=== PATIENT | female | born 2000 | race Caucasian/White ===

== ENCOUNTER 2018-12-04 03:07 | Inpatient (IN) | payer MEDICAID, OTHER ==
[2018-12-04 03:07] VITALS: BMI 30.1
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
[2018-12-04 03:35] LABS: BASO # 0.01 K/mm3 (0.0-2.0); BASO % 0.1 % (0.0-3.0); EOS # 0.4 (0.0-0.7); EOS % 5.3 % (1.5-5.0); HEMOGLOBIN 9.7 g/dL (12.0-16.0); LYMPH # 2.7 (1.2-3.4); LYMPH % 37.8 % (22.0-35.0); MEAN CELL VOLUME 74.2 fl (80.0-105.0); MEAN CORPUSCULAR HEMOGLOBIN 22.6 pg (25.0-35.0); MEAN CORPUSCULAR HGB CONC 30.4 g/dl (31.0-37.0); MEAN PLATELET VOLUME 9.4 fl (7.0-11.0); MONO # 0.3 (0.1-0.6); MONO % 3.5 % (1.0-6.0); RBC 4.3 10^6/uL (3.5-6.1); RED CELL DISTRIBUTION WIDTH 15.4 % (11.5-14.5); WHITE BLOOD COUNT 7.2 10^3/uL (4.5-11.0)
[2018-12-04 03:46] LABS: ALT/SGPT 19 U/L (7-56); AST/SGOT 33 U/L (14-36); BLOOD UREA NITROGEN 12 mg/dL (7-21); GFR NON-AFRICAN AMERICAN > 60
[2018-12-04 03:56] VITALS: O2SAT 100
[2018-12-04 04:05] LABS: ACETAMINOPHEN < 10.0 ug/ml (10.0-20.0); SALICYLATE < 1 mg/dL (2.0-20.0)
[2018-12-04 04:24] LABS: PH,URINE 6.5 (4.7-8.0); URINE APPEARANCE CLEAR (CLEAR); URINE BILIRUBIN NEGATIVE (NEGATIVE); URINE BLOOD NEGATIVE (NEGATIVE); URINE COLOR YELLOW (YELLOW); URINE GLUCOSE (UA) NEGATIVE (NEGATIVE); URINE LEUKOCYTE ESTERASE NEGATIVE Leu/uL (NEGATIVE); URINE PROTEIN NEGATIVE mg/dL (<30 mg/dL); URINE UROBILINOGEN 0.2 E.U./dL (<1 E.U./dL)
[2018-12-04 04:31] LABS: HCG,QUALITATIVE URINE NEGATIVE (NEGATIVE)
[2018-12-04 04:36] LABS: BARBITURATES, UR NEGATIVE (NEGATIVE); BENZODIAZEPINES, UR NEGATIVE (NEGATIVE); OPIATES, UR NEGATIVE (NEGATIVE); PHENCYCLIDINE, UR NEGATIVE (NEGATIVE)
--- NOTE | 2018-12-04 05:42 | PCM.BM ---
<Sarina Hopson - Last Filed: 12/04/18 05:39> Treatment Plan Problems - Problems identified on initial assessmt SUICIDAL IDEATION Date Initiated: 12/04/18 Time Initiated: 05:30 Assessment reference: NA Status: Active Priority: 1 INEFFECTIVE COPING Date Initiated: 12/04/18 Time Initiated: 05:30 Assessment reference: NA Status: Active Priority: 2 MEDICAL NON ADHERENCE Date Initiated: 12/04/18 Time Initiated: 05:30 Assessment reference: NA Status: Active Priority: 3 Treatment assets and liabiliti Patient Assests: cooperative, educated, self-reliant, ADL independent, physically healthy, negotiates basic needs, cognitively intact Patient Liabilities: financial problems, relationship conflicts - Milieu Protocol Maintain good personal hygiene: every other day Encourage regular showers, every shift Remind patient to perform daily oral care, every shift Assist patient to perform ADL's Maintain personal safety: every shift Educate patient to report safety concerns to staff, every shift Monitor environment for contraband/sharps Medication safety: Monitor for expected outcome, potential side effects: every shift, Assess barriers to learning: every shift, Assess readiness for medication education: every shift Family Contact Family involvement: Family/SO is involved Family contact: Patient agrees to contact Discharge/Continuing Care - Education Needs Education Needs: Patient Medication, Patient Diagnosis/Disease Process, Patient Coping Skills, Patient Anger Management skills, Patient Placement options, Patient Activities of Daily Living, Patient Uses of Medical Equipment - Discharge Discharge Criteria: Tolerates medication w/o severe side effects, Free of Suicidal thoughts, Free of paranoid thoughts, Normal sleep pattern, Ability to care for self <Ritika Santos Y - Last Filed: 12/04/18 15:41> Family Contact Family involvement: Family/SO is involved Family contact: Patient agrees to contact <Concepcion Summers - Last Filed: 12/04/18 15:42> - Diagnosis (1) Alcohol abuse Status: Acute Interventions: 12/04/18 15:42 Monitoring withdrawal symptoms Medical detoxification Pharmacotherapy for alcohol/benzos/opioid dependence Maintaining sobriety Relapse prevention Possible rehabilitation Motivational interviewing 12-step programs: AA meetings (2) Depression Status: Acute Interventions: 12/04/18 15:43 Psychoeducation Psychopharmacology/adjustment of medications as needed/ monitoring possible side effects Evaluate pt on daily basis Compliance with medications and follow up appointments Suicide and homicide risk assessment and prevention Relapse prevention Reduction of symptoms Improve functional status Family involvement As outpatient: cognitive behavioral therapy <Sumaya Ibarra - Last Filed: 12/05/18 11:29>
[2018-12-04] MEDS ORDERED: Alum-Mag Hydrox-Simethicone Susp (30 mL) PO PRN (06:05)
[2018-12-04] MEDS ORDERED: Magnesium Hydroxide Susp 30 ml UD PO PRN (06:05)
[2018-12-04 09:19] LABS: HDL CHOLESTEROL 30 mg/dL (29-60)
[2018-12-04 09:30] LABS: LDL CHOLESTEROL 74 mg/dL (0-129)
[2018-12-04 09:31] LABS: FREE T4 0.39 ng/dL (0.78-2.19)
--- NOTE | 2018-12-04 10:22 | CARD ---
APPROVED REPORT Date of service: 12/04/2018 EKG Measurement Heart [id number] <Conclusion> Normal sinus rhythm with sinus arrhythmia Normal ECG
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
[2018-12-04] MEDS: Multivitamin With Minerals Tab PO SCH (17:24)
[2018-12-04 17:45] LABS: RAPID PLASMA REAGIN REACTIVE (NONREACTIVE)
[2018-12-05] MEDS: Multivitamin With Minerals Tab PO SCH (09:33)
--- NOTE | 2018-12-05 16:07 | PCM.PYCHPN ---
Psychiatric Progress Note - Psychiatric Progress Note Patient seen today, length of contact: 30 minutes Patient Chief Complaint: "I am very tires, I was not sleeping, I am not doing so well" Problems Identified/Issues Discussed: Risk/benefits and alternatives of medications discussed, suicide/ homicide prevention, past psychiatric h/o, current psychiatric symptoms, medical problems, risk/benefits and alternatives of medications, medications compliance, coping strategies, substance abuse h/o, relapse prevention, importance of follow up with psychiatrist and therapist, discharge plan. Medical Problems: Alcohol use disorder, besides that patient is relatively healthy Diagnostic Results: 12/04/18 03:25 12/04/18 08:43 Lab Results 12/04/18 08:43: Random Glucose 84, Triglycerides 174 H, Cholesterol 139, LDL Cholesterol Direct 74, HDL Cholesterol 30 12/04/18 08:40: RPR Titer 1:1, RPR Reactive H 12/04/18 08:39: Free T4 0.39 L, TSH 3rd Generation 38.10 H 12/04/18 03:59: Urine Opiates Screen Negative, Urine Methadone Screen Negative, Ur Barbiturates Screen Negative, Ur Phencyclidine Scrn Negative, Ur Amphetamines Screen Negative, U Benzodiazepines Scrn Negative, U Oth Cocaine Metabols Negative, U Cannabinoids Screen Negative 12/04/18 03:59: Urine Color Yellow, Urine Appearance Clear, Urine pH 6.5, Ur Specific [place] 1.025, Urine Protein Negative, Urine Glucose (UA) Negative, Urine Ketones Negative, Urine Blood Negative, Urine Nitrate Negative, Urine Bilirubin Negative, Urine Urobilinogen 0.2, Ur Leukocyte Esterase Negative, Urine HCG, Qual Negative 12/04/18 03:25: Alcohol, Quantitative < 10 12/04/18 03:25: Salicylates < 1 L, Acetaminophen < 10.0 L 12/04/18 03:25: Sodium 139, Potassium 3.6, Chloride 107, Carbon Dioxide 24, Anion Gap 11, BUN 12, Creatinine 0.7, Est GFR ( Amer) > 60, Est GFR (Non- Af Amer) > 60, Random Glucose 92, Calcium 9.0, Magnesium 1.8, Total Bilirubin 0.2, AST 33, ALT 19, Alkaline Phosphatase 77, Total Protein 7.9, Albumin 4.0, Globulin 3.9, Albumin/Globulin Ratio 1.0 L 12/04/18 03:25: WBC 7.2, RBC 4.30, Hgb 9.7 L, Hct 31.9 L, MCV 74.2 L, MCH 22.6 L , MCHC 30.4 L, RDW 15.4 H, Plt Count 460 H, MPV 9.4, Neut % (Auto) 53.3, Lymph % (Auto) 37.8 H, [place] % (Auto) 3.5, Eos % (Auto) 5.3 H, Baso % (Auto) 0.1, Lymph # (Auto) 2.7, [place] # (Auto) 0.3, Eos # (Auto) 0.4, Baso # (Auto) 0.01, Absolute Neuts (auto) 3.81 Vital Signs Temp Pulse Resp BP Pulse Ox 12/05/18 07:20 97.3 F L 60 18 83/38 L 12/04/18 05:44 20 12/04/18 05:10 62 18 127/63 100 12/04/18 03:20 97.4 F L 60 18 126/72 100 DSM 5 Symptoms Update: Shortly, patient is a 18 year old single [place]ian female with history of depression, anxiety, one previous admission to this facility in September 2018, was admitted to the psychiatric inpatient unit for evaluation and stabilization of depressive symptoms and possible suicidal ideation with plan to drown herself. Please see emergency room notes for more detailed information. Patient was seen and examined today in her room, poor personal hygiene, patient appears to be disheveled, good ADLs. Patient appears to be depressed, disengaged, flat affect, patient reported that she did not sleep last night, patient reported to feel hopeless and helpless. As per staff patient does not participate in unit activities, patient is self isolating, depressed, no agitation, no aggression. So far patient tolerates medications well, no side effects observed or reported, aims 0, no EPS. 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 Impression: DSM 5 Diagnosis: Rule out major depressive disorder rule out bipolar disorder Alcohol abuse Rule out adjustment disorder PTSD as per history Medication Change: No (Resumed yesterday) Medical Record Reviewed: Yes Consults ordered or reviewed: Patient is in good physical health, will consider to have medical consult patient if patient would have any medical complaints. Mental Status Examination - Cognitive Function Orientation: Person, Place, Situation, Time Memory: Intact Attention: Poor Concentration: Poor Association: Loose Fund of Knowledge: Poor - Mood Mood: Depressed, Anxious - Affect Affect: Constricted (And tearful), Flat - Formal Thought Process Formal Thought Process: No Impairment - Suicidal Ideation Suicidal Ideation: Yes Plan: Passive wish to be - Homicidal Ideation Homicidal Ideation: No Goal/Treatment Plan - Goal/Treatment Plan Need for Continued Stay: Remain at risks for inpatient hospitalization, Severe depression anxiety, Discharge may exacerbated symptoms, Severe functional impairment Progress Toward Problem(s) and Goals/Treatment Plan: Milieu/structure/supportive therapy SW consultation for discharge plan and social issues Med management Patient wants to resume all of her psychotropic medications Lexapro 20 mg daily for depression and anxiety Seroquel 50 mg at the nighttime for mood stabilization and psychotic symptoms Multivitamins, thiamine, folic acid Sonata as needed for insomnia Family involvement Follow up on labs Will monitor closely Pt was educated about risk/benefits and alternatives of medications, coping strategies (safety plan, suicide prevention), relapse prevention, importance of follow up with psychiatrist and therapist, stay away from drugs/alcohol/smoking Estimated Date of D/C: 12/11/18
[2018-12-06] MEDS: Multivitamin With Minerals Tab PO SCH (09:25)
--- NOTE | 2018-12-06 15:40 | PCM.PYCHPN ---
Psychiatric Progress Note - Psychiatric Progress Note Patient seen today, length of contact: 30 minutes Patient Chief Complaint: "I am doing a little bit better" Problems Identified/Issues Discussed: Risk/benefits and alternatives of medications discussed, suicide/ homicide prevention, past psychiatric h/o, current psychiatric symptoms, medical problems, risk/benefits and alternatives of medications, medications compliance, coping strategies, substance abuse h/o, relapse prevention, importance of follow up with psychiatrist and therapist, discharge plan. Medical Problems: Alcohol use disorder, besides that patient is relatively healthy Diagnostic Results: 12/04/18 03:25 12/04/18 08:43 Lab Results 12/04/18 08:43: Random Glucose 84, Triglycerides 174 H, Cholesterol 139, LDL Cholesterol Direct 74, HDL Cholesterol 30 12/04/18 08:40: RPR Titer 1:1, RPR Reactive H 12/04/18 08:39: Free T4 0.39 L, TSH 3rd Generation 38.10 H 12/04/18 03:59: Urine Opiates Screen Negative, Urine Methadone Screen Negative, Ur Barbiturates Screen Negative, Ur Phencyclidine Scrn Negative, Ur Amphetamines Screen Negative, U Benzodiazepines Scrn Negative, U Oth Cocaine Metabols Negative, U Cannabinoids Screen Negative 12/04/18 03:59: Urine Color Yellow, Urine Appearance Clear, Urine pH 6.5, Ur Specific [place] 1.025, Urine Protein Negative, Urine Glucose (UA) Negative, Urine Ketones Negative, Urine Blood Negative, Urine Nitrate Negative, Urine Bilirubin Negative, Urine Urobilinogen 0.2, Ur Leukocyte Esterase Negative, Urine HCG, Qual Negative 12/04/18 03:25: Alcohol, Quantitative < 10 12/04/18 03:25: Salicylates < 1 L, Acetaminophen < 10.0 L 12/04/18 03:25: Sodium 139, Potassium 3.6, Chloride 107, Carbon Dioxide 24, Anion Gap 11, BUN 12, Creatinine 0.7, Est GFR ( Amer) > 60, Est GFR (Non- Af Amer) > 60, Random Glucose 92, Calcium 9.0, Magnesium 1.8, Total Bilirubin 0.2, AST 33, ALT 19, Alkaline Phosphatase 77, Total Protein 7.9, Albumin 4.0, Globulin 3.9, Albumin/Globulin Ratio 1.0 L 12/04/18 03:25: WBC 7.2, RBC 4.30, Hgb 9.7 L, Hct 31.9 L, MCV 74.2 L, MCH 22.6 L , MCHC 30.4 L, RDW 15.4 H, Plt Count 460 H, MPV 9.4, Neut % (Auto) 53.3, Lymph % (Auto) 37.8 H, [place] % (Auto) 3.5, Eos % (Auto) 5.3 H, Baso % (Auto) 0.1, Lymph # (Auto) 2.7, [place] # (Auto) 0.3, Eos # (Auto) 0.4, Baso # (Auto) 0.01, Absolute Neuts (auto) 3.81 Vital Signs Temp Pulse Resp BP Pulse Ox 12/05/18 07:20 97.3 F L 60 18 83/38 L 12/04/18 05:44 20 12/04/18 05:10 62 18 127/63 100 12/04/18 03:20 97.4 F L 60 18 126/72 100 DSM 5 Symptoms Update: Shortly, patient is a 18 year old single Burmese female with history of depression, anxiety, one previous admission to this facility in September 2018, was admitted to the psychiatric inpatient unit for evaluation and stabilization of depressive symptoms and possible suicidal ideation with plan to drown herself. Please see emergency room notes for more detailed information. Patient was seen and examined today in her room, poor personal hygiene, patient appears to be disheveled, good ADLs. Patient appears to be depressed, but there is some improvements with patient presentation, patient smiled couple of times, patient reported that her sleep was better, patient reported that her nausea is improving. As per staff patient does not participate in unit activities, patient is self isolating, depressed, no agitation, no aggression. So far patient tolerates medications well, no side effects observed or reported, aims 0, no EPS. Impression: DSM 5 Diagnosis: Rule out major depressive disorder rule out bipolar disorder Alcohol abuse Rule out adjustment disorder PTSD as per history Medication Change: No (Patient does not want medications to be adjusted) Medical Record Reviewed: Yes Consults ordered or reviewed: Patient is in good physical health, will consider to have medical consult patient if patient would have any medical complaints. Mental Status Examination - Cognitive Function Orientation: Person, Place, Situation, Time Memory: Intact Attention: Poor (Some improvement) Concentration: Poor (Some improvement) Association: Loose Fund of Knowledge: Poor - Mood Mood: Depressed ("I feel little better"), Anxious - Affect Affect: Constricted (But more reactive and mood congruent) - Speech Speech: Appropriate - Formal Thought Process Formal Thought Process: No Impairment - Suicidal Ideation Suicidal Ideation: No - Homicidal Ideation Homicidal Ideation: No Goal/Treatment Plan - Goal/Treatment Plan Need for Continued Stay: Remain at risks for inpatient hospitalization, Severe depression anxiety, Discharge may exacerbated symptoms, Severe functional impairment Progress Toward Problem(s) and Goals/Treatment Plan: Milieu/structure/supportive therapy SW consultation for discharge plan and social issues Med management Patient wants to resume all of her psychotropic medications Lexapro 20 mg daily for depression and anxiety Seroquel 50 mg at the nighttime for mood stabilization and psychotic symptoms Multivitamins, thiamine, folic acid Sonata as needed for insomnia Family involvement Follow up on labs Will monitor closely Pt was educated about risk/benefits and alternatives of medications, coping st rategies (safety plan, suicide prevention), relapse prevention, importance of follow up with psychiatrist and therapist, stay away from drugs/alcohol/smoking Estimated Date of D/C: 12/11/18
[2018-12-07] MEDS: Multivitamin With Minerals Tab PO SCH (08:48)
--- NOTE | 2018-12-07 13:56 | PCM.PYCHPN ---
Psychiatric Progress Note - Psychiatric Progress Note Patient seen today, length of contact: 30 minutes Patient Chief Complaint: "I am doing a little bit better" Problems Identified/Issues Discussed: Risk/benefits and alternatives of medications discussed, suicide/ homicide prevention, past psychiatric h/o, current psychiatric symptoms, medical problems, risk/benefits and alternatives of medications, medications compliance, coping strategies, substance abuse h/o, relapse prevention, importance of follow up with psychiatrist and therapist, discharge plan. Medical Problems: Alcohol use disorder, besides that patient is relatively healthy Diagnostic Results: 12/04/18 03:25 12/04/18 08:43 Lab Results 12/04/18 08:43: Random Glucose 84, Triglycerides 174 H, Cholesterol 139, LDL Cholesterol Direct 74, HDL Cholesterol 30 12/04/18 08:40: RPR Titer 1:1, RPR Reactive H 12/04/18 08:39: Free T4 0.39 L, TSH 3rd Generation 38.10 H 12/04/18 03:59: Urine Opiates Screen Negative, Urine Methadone Screen Negative, Ur Barbiturates Screen Negative, Ur Phencyclidine Scrn Negative, Ur Amphetamines Screen Negative, U Benzodiazepines Scrn Negative, U Oth Cocaine Metabols Negative, U Cannabinoids Screen Negative 12/04/18 03:59: Urine Color Yellow, Urine Appearance Clear, Urine pH 6.5, Ur Specific [place] 1.025, Urine Protein Negative, Urine Glucose (UA) Negative, Urine Ketones Negative, Urine Blood Negative, Urine Nitrate Negative, Urine Bilirubin Negative, Urine Urobilinogen 0.2, Ur Leukocyte Esterase Negative, Urine HCG, Qual Negative 12/04/18 03:25: Alcohol, Quantitative < 10 12/04/18 03:25: Salicylates < 1 L, Acetaminophen < 10.0 L 12/04/18 03:25: Sodium 139, Potassium 3.6, Chloride 107, Carbon Dioxide 24, Anion Gap 11, BUN 12, Creatinine 0.7, Est GFR ( Amer) > 60, Est GFR (Non- Af Amer) > 60, Random Glucose 92, Calcium 9.0, Magnesium 1.8, Total Bilirubin 0.2, AST 33, ALT 19, Alkaline Phosphatase 77, Total Protein 7.9, Albumin 4.0, Globulin 3.9, Albumin/Globulin Ratio 1.0 L 12/04/18 03:25: WBC 7.2, RBC 4.30, Hgb 9.7 L, Hct 31.9 L, MCV 74.2 L, MCH 22.6 L , MCHC 30.4 L, RDW 15.4 H, Plt Count 460 H, MPV 9.4, Neut % (Auto) 53.3, Lymph % (Auto) 37.8 H, [place] % (Auto) 3.5, Eos % (Auto) 5.3 H, Baso % (Auto) 0.1, Lymph # (Auto) 2.7, [place] # (Auto) 0.3, Eos # (Auto) 0.4, Baso # (Auto) 0.01, Absolute Neuts (auto) 3.81 Vital Signs Temp Pulse Resp BP Pulse Ox 12/05/18 07:20 97.3 F L 60 18 83/38 L 12/04/18 05:44 20 12/04/18 05:10 62 18 127/63 100 12/04/18 03:20 97.4 F L 60 18 126/72 100 DSM 5 Symptoms Update: Shortly, patient is a 18 year old single Portuguese female with history of depression, anxiety, one previous admission to this facility in September 2018, was admitted to the psychiatric inpatient unit for evaluation and stabilization of depressive symptoms and possible suicidal ideation with plan to drown herself. Please see emergency room notes for more detailed information. Patient was seen and examined today next to the station, hygiene is improving, affect was more reactive, patient reported that she had nightmares, patient denied any thoughts of harming herself or others, asking to be discharged tomorrow. As per staff patient does not participate in unit activities, has good appetite, no agitation, no aggression. So far patient tolerates medications well, no side effects observed or reported, aims 0, no EPS. Impression: DSM 5 Diagnosis: Rule out major depressive disorder rule out bipolar disorder Alcohol abuse Rule out adjustment disorder PTSD as per history Medication Change: No (Patient does not want medications to be adjusted) Medical Record Reviewed: Yes Mental Status Examination - Cognitive Function Orientation: Person, Place, Situation, Time Memory: Intact Attention: Poor (Some improvement) Concentration: Poor (Some improvement) Association: Loose Fund of Knowledge: Poor - Mood Mood: Depressed ("I feel little better"), Anxious - Affect Affect: Constricted (But more reactive and mood congruent) - Speech Speech: Appropriate - Formal Thought Process Formal Thought Process: No Impairment - Suicidal Ideation Suicidal Ideation: No - Homicidal Ideation Homicidal Ideation: No Goal/Treatment Plan - Goal/Treatment Plan Need for Continued Stay: Remain at risks for inpatient hospitalization, Severe depression anxiety, Discharge may exacerbated symptoms, Severe functional impairment Progress Toward Problem(s) and Goals/Treatment Plan: Milieu/structure/supportive therapy SW consultation for discharge plan and social issues Med management Patient wants to resume all of her psychotropic medications Lexapro 20 mg daily for depression and anxiety Seroquel 50 mg at the nighttime for mood stabilization and psychotic symptoms Multivitamins, thiamine, folic acid Sonata as needed for insomnia Family involvement Follow up on labs Will monitor closely Pt was educated about risk/benefits and alternatives of medications, coping strategies (safety plan, suicide prevention), relapse prevention, importance of follow up with psychiatrist and therapist, stay away from drugs/alcohol/smoking Estimated Date of D/C: 12/08/18
[2018-12-08 07:12] VITALS: BP 89/54; PULSE 66; RESP 18; TEMP 98.2
[2018-12-08] MEDS: Multivitamin With Minerals Tab PO SCH (08:45)
--- NOTE | 2018-12-08 15:16 | PCM.PYCHDC ---
Mental Status Examination - Mental Status Examination Orientation: Person, Place, Situation, Time Memory: Intact Mood: Neutral Affect: Constricted (But reactive and mood congruent) Speech: Appropriate (But underproductive) Attention: WNL Concentration: WNL Association: WNL Fund of Knowledge: Poor (Baseline) Formal Thought Process: No Impairment Description of patient's judgement and insight: Pt has improved insight into mental and medical illness, pt was compliant with medications and unit rules and regulations, pt was attending therapy groups, was calm, cooperative, socially appropriate, no behavioral incidents, no agitation, no aggression. Psychotic Thoughts and Behaviors: Pt denied v/a/t hallucinations, denied paranoid ideations, pt does not appear to be psychotic, and thought process is goal directed. Suicidal Ideation: No Current Homicidal Ideation?: No Plan: pt adamantly denied thoughts of harming self or others denied intent or plan. Discharge Summary - Discharge Note Reason for Hospitalization: Patient was admitted to the psychiatric inpatient unit for evaluation and stabilization of depressive symptoms, possible suicidal ideation with a plan to drown herself. Psychiatric History (includes Medical, Family, Personal Hx): See HPI Laboratory Data: 12/04/18 03:25 12/04/18 08:43 Lab Results 12/04/18 08:43: Random Glucose 84, Triglycerides 174 H, Cholesterol 139, LDL Cholesterol Direct 74, HDL Cholesterol 30 12/04/18 08:40: RPR Titer 1:1, RPR Reactive H 12/04/18 08:39: Free T4 0.39 L, TSH 3rd Generation 38.10 H 12/04/18 03:59: Urine Opiates Screen Negative, Urine Methadone Screen Negative, Ur Barbiturates Screen Negative, Ur Phencyclidine Scrn Negative, Ur Amphetamines Screen Negative, U Benzodiazepines Scrn Negative, U Oth Cocaine Metabols Negative, U Cannabinoids Screen Negative 12/04/18 03:59: Urine Color Yellow, Urine Appearance Clear, Urine pH 6.5, Ur Specific [place] 1.025, Urine Protein Negative, Urine Glucose (UA) Negative, Urine Ketones Negative, Urine Blood Negative, Urine Nitrate Negative, Urine Bilirubin Negative, Urine Urobilinogen 0.2, Ur Leukocyte Esterase Negative, Urine HCG, Qual Negative 12/04/18 03:25: Alcohol, Quantitative < 10 12/04/18 03:25: Salicylates < 1 L, Acetaminophen < 10.0 L 12/04/18 03:25: Sodium 139, Potassium 3.6, Chloride 107, Carbon Dioxide 24, Anion Gap 11, BUN 12, Creatinine 0.7, Est GFR ( Amer) > 60, Est GFR (Non- Af Amer) > 60, Random Glucose 92, Calcium 9.0, Magnesium 1.8, Total Bilirubin 0.2, AST 33, ALT 19, Alkaline Phosphatase 77, Total Protein 7.9, Albumin 4.0, Globulin 3.9, Albumin/Globulin Ratio 1.0 L 12/04/18 03:25: WBC 7.2, RBC 4.30, Hgb 9.7 L, Hct 31.9 L, MCV 74.2 L, MCH 22.6 L , MCHC 30.4 L, RDW 15.4 H, Plt Count 460 H, MPV 9.4, Neut % (Auto) 53.3, Lymph % (Auto) 37.8 H, [place] % (Auto) 3.5, Eos % (Auto) 5.3 H, Baso % (Auto) 0.1, Lymph # (Auto) 2.7, [place] # (Auto) 0.3, Eos # (Auto) 0.4, Baso # (Auto) 0.01, Absolute Neuts (auto) 3.81 Vital Signs Temp Pulse Resp BP Pulse Ox 12/08/18 07:11 98.2 F 66 18 89/54 L 12/07/18 16:00 78 116/71 12/07/18 07:01 97.5 F L 61 20 81/44 L 12/06/18 15:00 91 H 20 118/74 12/06/18 07:18 97.7 F 64 16 82/45 L 12/05/18 16:00 93 H 109/64 12/05/18 07:20 97.3 F L 60 18 83/38 L 12/04/18 05:44 20 12/04/18 05:10 62 18 127/63 100 12/04/18 03:20 97.4 F L 60 18 126/72 100 Consultations:: List each consultation separately and include: 1. Reason for request. 2. Findings. 3. Follow-up Consultations: Patient is in good physical health, did not express any medical concerns, no medical consult was called, patient was evaluated by medical team in the emergency room. Summary of Hospital Course include:: 1. Description of specific treatment plan utilized for patients during their course of treatmen. 2. Summarize the time- course for resolution of acute symptoms and/or regressed behaviors. 3. Describe issues identified and worked on during hospitalization. 4. Describe medication utilized. 5. Describe medical problems identified and treated. 6. Reassessment of suicide risk Summary of Hospital Course: Shortly, patient is a 18 year old single [place] female with history of depression, anxiety, one previous admission to this facility in September 2018, was admitted to the psychiatric inpatient unit for evaluation and stabilization of depressive symptoms and possible suicidal ideation with plan to drown herself. At the time of admission patient presented to be depressed, hopeless, helpless, had passive wish to be . Patient was stabilized on the following medications: Lexapro 20 mg daily for depression and anxiety Seroquel 50 mg at the nighttime for mood stabilization and psychotic symptoms Multivitamins, thiamine, folic acid Sonata as needed for insomnia Klonopin 0.25 mg twice daily as needed for anxiety Patient tolerated medications well, no side effects observed or reported, aims 0, no EPS. Patient did not have any alcohol withdrawal symptoms, vital signs were stable. 12/04/18 03:25 12/04/18 08:43 Lab Results 12/04/18 08:43: Random Glucose 84, Triglycerides 174 H, Cholesterol 139, LDL Cholesterol Direct 74, HDL Cholesterol 30 12/04/18 08:39: Free T4 0.39 L, TSH 3rd Generation 38.10 H 12/04/18 03:59: Urine Opiates Screen Negative, Urine Methadone Screen Negative, Ur Barbiturates Screen Negative, Ur Phencyclidine Scrn Negative, Ur Amphetamines Screen Negative, U Benzodiazepines Scrn Negative, U Oth Cocaine Metabols Negative, U Cannabinoids Screen Negative 12/04/18 03:59: Urine Color Yellow, Urine Appearance Clear, Urine pH 6.5, Ur Specific [place] 1.025, Urine Protein Negative, Urine Glucose (UA) Negative, Urine Ketones Negative, Urine Blood Negative, Urine Nitrate Negative, Urine Bilirubin Negative, Urine Urobilinogen 0.2, Ur Leukocyte Esterase Negative, U rine HCG, Qual Negative 12/04/18 03:25: Alcohol, Quantitative < 10 12/04/18 03:25: Salicylates < 1 L, Acetaminophen < 10.0 L 12/04/18 03:25: Sodium 139, Potassium 3.6, Chloride 107, Carbon Dioxide 24, Anion Gap 11, BUN 12, Creatinine 0.7, Est GFR ( Amer) > 60, Est GFR (Non- Af Amer) > 60, Random Glucose 92, Calcium 9.0, Magnesium 1.8, Total Bilirubin 0.2, AST 33, ALT 19, Alkaline Phosphatase 77, Total Protein 7.9, Albumin 4.0, Globulin 3.9, Albumin/Globulin Ratio 1.0 L 12/04/18 03:25: WBC 7.2, RBC 4.30, Hgb 9.7 L, Hct 31.9 L, MCV 74.2 L, MCH 22.6 L , MCHC 30.4 L, RDW 15.4 H, Plt Count 460 H, MPV 9.4, Neut % (Auto) 53.3, Lymph % (Auto) 37.8 H, [place] % (Auto) 3.5, Eos % (Auto) 5.3 H, Baso % (Auto) 0.1, Lymph # (Auto) 2.7, [place] # (Auto) 0.3, Eos # (Auto) 0.4, Baso # (Auto) 0.01, Absolute Neuts (auto) 3.81 Vital Signs Temp Pulse Resp BP Pulse Ox 12/04/18 05:44 20 12/04/18 05:10 62 18 127/63 100 12/04/18 03:20 97.4 F L 60 18 126/72 100 Over the course of this hospitalization pt was attending groups, pt also had medication management, had therapeutic milieu. Overall pt improved significantly, pt's affect became brighter, pt was less depressed, has realistic future oriented plans, pt also does not appear to be psychotic, or anxious, pt was socially appropriate, no behavioral issues, pts insight improved as well and soon pt deemed to be ready for discharge. At the time of the discharge patient pose no imminent danger to self or others, will be following up with at [facility], information about follow up appointment, time and address provided to the pt, (see SW note for more detailed information). It is a patient responsibility to follow up with outpatient clinic, PMD as well as specialists In case patient will need to obtain results of studies pending at discharge, patient was provided with contact information of Psychiatric Inpatient unit [phone] as well as Medical Record Department [phone], as well as [facility] team [phone]. Patient denies smoking Naltrexone treatment offered, but pt said that she has no cravings for alcohol Counseling about alcohol cessation provided AA meetings program information was provided by the [facility] pt was provided with prescriptions for two weeks and one refill for psychotropic meds and one week for medical meds (see medication reconciliation form) Pt was educated about safety plan in case of worsening of symptoms or in case of suicidal or homicidal ideation call 911 or go to the nearest ER, also was educated to take meds as prescribed and stay away from drugs, pt verbalized understanding. - Diagnosis (1) Alcohol abuse Status: Acute Priority: Medium (2) Depression Status: Chronic Priority: High - Final Diagnosis (DSM 5) Condition upon Discharge: GOOD Disposition: HOME/ ROUTINE Follow-up Treatment Plan: Over the course of this hospitalization pt was attending groups, pt also had medication management, had therapeutic milieu. Overall pt improved significantly, pt's affect became brighter, pt was less depressed, has realistic future oriented plans, pt also does not appear to be psychotic, or anxious, pt was socially appropriate, no behavioral issues, pts insight improved as well and soon pt deemed to be ready for discharge. At the time of the discharge patient pose no imminent danger to self or others, will be following up at [facility] health clinic, information about follow up appointment, time and address provided to the pt, (see note for more detailed information). It is a patient responsibility to follow up with outpatient clinic, PMD as well as specialists In case patient will need to obtain results of studies pending at discharge, patient was provided with contact information of Psychiatric Inpatient unit [phone] as well as Medical Record Department [phone], as well as [facility] team [phone]. Nicotine patch was provided Naltrexone treatment offered Nicotine patch was offered Counseling about smoking and alcohol cessation provided AA meetings as well as [facility] [place] information was provided by the [facility] pt was provided with prescriptions for two weeks and one refill for psychotropic meds and one week for medical meds (see medication reconciliation form) Pt was educated about safety plan in case of worsening of symptoms or in case of suicidal or homicidal ideation call 911 or go to the nearest ER, also was educated to take meds as prescribed and stay away from drugs, pt verbalized understanding. Prescriptions/Medication Reconciliation: clonazePAM [Klonopin] 0.25 mg PO BID PRN #7 tab PRN Reason: Anxiety Escitalopram [Lexapro] 20 mg PO DAILY #14 tab Multimineral/Multivitamin [Therapeutic-M Tab] 1 tab PO DAILY #14 tab QUEtiapine [SEROquel] 50 mg PO HS #14 tab - Smoking Cessation Smoking Cessation Medication prescribed: No Reason for not providing: Patient denied smoking - Antipsychotic Medications Pt discharged on 2 or more routine antipsychotic medications: No
== END 2018-12-08 13:04 | disposition home or self-care (01) | DRG 753 ==
LOC: ED 03:07 → ERH 05:00 → PSYC 05:14
PROVIDERS: ADMIT Psychiatry & Neurology Psychiatry; ATTEND Psychiatry & Neurology Psychiatry
DX: F31.9 Bipolar disorder, unspecified (principal); R45.851 Suicidal ideations; F43.10 Post-traumatic stress disorder, unspecified; F10.10 Alcohol abuse, uncomplicated